=== PATIENT | male | born 1955 | race Hispanic/Latino ===

== ENCOUNTER → 2022-07-22 | Outpatient (CLI) | payer OTHER | END | disposition home or self-care (01) | LOC: SHCH 11:24 | PROVIDERS: ATTEND Internal Medicine Cardiovascular Disease | DX: I11.9 Hypertensive heart disease without heart failure (principal); R94.31 Abnormal electrocardiogram [ECG] [EKG]; R07.9 Chest pain, unspecified; E78.5 Hyperlipidemia, unspecified | CPT/HCPCS: 93306 ==